=== PATIENT | female | born 1975 | race African-American/Black ===

== ENCOUNTER → 2016-08-17 13:45 | Outpatient (CLI) | payer MEDICAID | END | disposition home or self-care (01) | LOC: D.RT 13:45 | DX: J45.909 Unspecified asthma, uncomplicated (principal) ==

== ENCOUNTER → 2018-07-23 12:57 | Outpatient (CLI) | payer MEDICAID | END | disposition home or self-care (01) | LOC: D.RAD 05-08 09:00 → D.RT 05-08 09:00 → D.RAD 05-08 10:00 → D.RT 12:57 | PROVIDERS: ATTEND Internal Medicine Pulmonary Disease | DX: D86.9 Sarcoidosis, unspecified (principal) ==